=== PATIENT | female | born 1935 | race Caucasian/White ===

== ENCOUNTER 2016-10-13 14:58 | Emergency (ER) | payer OTHER ==
[~2016-10-13] VITALS: Ht 152.4 cm; Wt 77.6 kg
[~2016-10-13 14:58] MED LIST: ALENDRONATE SOD70 MG PO; AMLODIPINE BESYL5 MG PO; AMOXICILLIN500 MG PO; ASPIRIN325 MG PO; LEVOTHYROXINE75 MCG PO; LISINOPRIL40 MG PO; NITROSTAT0.4 MG SL; SIMVASTATIN10 MG PO
[2016-10-13 17:20] VITALS: BP 147/71
== END 2016-10-13 17:26 | disposition home or self-care (01) ==
LOC: EME 14:58 → EXP 14:58
PROC: 3E0234Z Introduction of Serum, Toxoid and Vaccine into Muscle, Percutaneous Approach (ICD-10-PCS; principal; 2016-10-13)
DX: S00.83XA Contusion of other part of head, initial encounter (principal); S50.12XA Contusion of left forearm, initial encounter; S60.00XA Contusion of unspecified finger without damage to nail, initial encounter; S41.112A Laceration without foreign body of left upper arm, initial encounter; S80.812A Abrasion, left lower leg, initial encounter; W10.9XXA Fall (on) (from) unspecified stairs and steps, initial encounter; Y92.009 Unspecified place in unspecified non-institutional (private) residence as the place of occurrence of the external cause; Z23 Encounter for immunization; I10 Essential (primary) hypertension; Z95.5 Presence of coronary angioplasty implant and graft; Z79.82 Long term (current) use of aspirin; F17.200 Nicotine dependence, unspecified, uncomplicated
CPT/HCPCS: 70450; 70486; 72125; 99281; 99283